=== PATIENT | female | born 1980 | race Caucasian/White ===

== ENCOUNTER 2017-11-10 01:22 | Inpatient (IN) | payer MEDICAID ==
--- NOTE | 2017-11-10 05:14 | Ultrasound Report ---
FINAL REPORT PROCEDURE: US OB BPP WO NON-STRESS TECHNIQUE: Sonographic evaluation for breathing, movement, tone, and amniotic fluid volume was performed. CPT 13571 HISTORY: wellbeing COMPARISON: No prior studies are available for comparison. FINDINGS: Amniotic fluid volume: Score of 0. The 4 quadrant amniotic fluid volume index 6.6 centimeters breathing: Normal-score 2. movement: Normal-score 2. tone: Normal. Score: 6 of 8 There is a single fetus in a vertex presentation. heart rate 141 beats per minute. IMPRESSION: Biophysical profile score 6 of 8
--- NOTE | 2017-11-10 05:16 | Ultrasound Report ---
FINAL REPORT PROCEDURE: US OB LIMITED TECHNIQUE: Real-time limited sonographic examination was performed for evaluation of amniotic fluid volume for each fetus with image documentation (1 or more fetuses). CPT 30889 HISTORY: wellbeing COMPARISON: No prior studies are available for comparison. FINDINGS: There is a single fetus in a vertex presentation. heart rate 141 beats per minute. A 4 quadrant amniotic fluid volume measures 6.6 centimeters. This is slightly low. The placenta is not fully imaged on this study. No further measurements are obtained. IMPRESSION: Slightly diminished amniotic fluid volume with a 4 quadrant measurement of 6.6 centimeters. Single fetus vertex presentation.
[2017-11-10] MEDS ORDERED: XYLOCAINE 2% INFILTRATI ONE ×2 (05:58→20:27)
[2017-11-10] MEDS ORDERED: BRETHINE IVP PRN (05:58)
[2017-11-10] MEDS ORDERED: MINERAL OIL PO PRN (05:58)
[2017-11-10] MEDS ORDERED: BRETHINE SUB-Q PRN (05:58)
[2017-11-10] MEDS ORDERED: PITOCin/NS 20 UNIT/1000ML DRIP 20 UNITS/1,000 ML BAG IV SCH (06:00)
[2017-11-10 06:41] LABS: Hematocrit 33.4 % (30.3-42.9); Mean Corpuscular HGB Conc 33 % (30-34); Mean Corpuscular Hemoglobin 28 pg (28-32); Mean Corpuscular Volume 84 fl (79-97); Platelet Count 239 K/mm3 (140-440); Red Blood Count 3.97 M/mm3 (3.65-5.03); Red Cell Distribution Width 14.8 % (13.2-15.2)
--- NOTE | 2017-11-10 06:51 | History and Physical Report ---
<ISRAEL BEAR - Last Filed: 11/10/17 06:47> History of Present Illness Date of examination: 11/10/17 History of present illness: 37 yo @ 41 weeks, presented with c/o LOF for 3 days. Nonreactive NST, BPP 6/10, RUPAL: 6.6cm. Scheduled for induction Sunday 11/12. 1cm on RN exam, nitz negative. records unavailable, will request. Past History - Obstetrical History : 4 Medications and Allergies Allergies Allergy/AdvReac Type Severity Reaction Status Date / Time No Known Allergies Allergy Verified 01/28/16 22:33 Home Medications Medication Instructions Recorded Confirmed Last Taken Type Ferrous Sulfate [Feosol 325 MG tab] 325 mg PO BID #60 tablet 11/11/17 Unknown Rx Ibuprofen [Motrin] 800 mg PO Q8HR PRN #30 tablet 11/11/17 Unknown Rx oxyCODONE /ACETAMINOPHEN [Percocet 1 tab PO Q6HR PRN #40 tablet 11/11/17 Unknown Rx 5/325] Active Meds: Active Medications Ephedrine Sulfate (Ephedrine Sulfate) 10 mg IV Q2M PRN PRN Reason: Hypotension Lactated Ringer's (Lactated Ringers) 1,000 mls @ 125 mls/hr IV DIRECT SAIDA Oxytocin/Sodium Chloride (Pitocin/Ns 20 Unit/1000ml Drip) 20 units in 1,000 mls @ 125 mls/hr IV DIRECT SAIDA Mineral Oil (Mineral Oil) 30 ml PO QHS PRN PRN Reason: Constipation Terbutaline Sulfate (Brethine) 0.25 mg SUB-Q ONCE PRN PRN Reason: Hyperstimulation/Hypertonicity Terbutaline Sulfate (Brethine) 0.25 mg IVP ONCE PRN PRN Reason: Hyperstimulation/Hypertonicity - Vital Signs Vital signs: Vital Signs Pulse Pulse Ox 76 98 11/10/17 03:29 11/10/17 03:29 Temp Pulse Resp BP Pulse Ox 80 98 11/10/17 04:54 11/10/17 04:54 Results Result Diagrams: 11/10/17 06:20 Abnormal lab results 11/10/17 Range/Units 06:20 WBC 11.1 H (4.5-11.0) K/mm3 All other labs normal. <MARYCRUZ TUCKER - Last Filed: 11/11/17 01:29> History of Present Illness Date of admission: 11/10/17 01:23 Medications and Allergies Active Meds: Active Medications Butorphanol Tartrate (Stadol) 2 mg IV Q2H PRN PRN Reason: Pain , Severe (7-10) Ephedrine Sulfate (Ephedrine Sulfate) 10 mg IV Q2M PRN PRN Reason: Hypotension Last Admin: 11/10/17 22:54 Dose: 10 mg Oxytocin/Sodium Chloride (Pitocin/Ns 20 Unit/1000ml Drip) 20 units in 1,000 mls @ 125 mls/hr IV DIRECT SAIDA Ampicillin Sodium (Ampicillin/Ns 1 Gm/50 Ml) 1 gm in 50 mls @ 100 mls/hr IV Q4H SAIDA; Protocol Lactated Ringer's (Lactated Ringers) 1,000 mls @ 125 mls/hr IV DIRECT SAIDA Last Admin: 11/10/17 22:58 Dose: 125 mls/hr Oxytocin/Sodium Chloride (Pitocin/Ns 30 Unit/500ml) 30 units in 500 mls @ 1 mls /hr IV TITR SAIDA; Protocol Oxytocin/Sodium Chloride (Pitocin/Ns 30 Unit/500ml) 30 units in 500 mls @ 4 mls /hr IV TITR SAIDA; Protocol Fentanyl/Bupivacaine/Sodium Chlor (Fentanyl-Bupiv 2 Mcg/Ml-0.125%) 200 mcg in 100 mls @ 12 mls/hr EPIDURAL TITR SAIDA; Protocol Last Admin: 11/10/17 22:39 Dose: 12 mls/hr Oxytocin/Sodium Chloride (Pitocin/Ns 20 Unit/1000ml Drip) 20 units in 1,000 mls @ 0 mls/hr IV TITR SAIDA Lactated Ringer's (Lactated Ringers) 1,000 mls @ 2,250 mls/hr IV PREOP SAIDA Stop: 11/12/17 01:27 Mineral Oil (Mineral Oil) 30 ml PO QHS PRN PRN Reason: Constipation Misoprostol (Cytotec) 25 mcg VG Q4H SAIDA Last Admin: 11/10/17 17:19 Dose: 25 mcg Naloxone HCl (Narcan 2 Mg/2 Ml) 0.2 mg IV Q5M PRN PRN Reason: Respiratory sedation Ondansetron HCl (Zofran) 4 mg IV Q8H PRN PRN Reason: Nausea And Vomiting Terbutaline Sulfate (Brethine) 0.25 mg SUB-Q ONCE PRN PRN Reason: Hyperstimulation/Hypertonicity Terbutaline Sulfate (Brethine) 0.25 mg IVP ONCE PRN PRN Reason: Hyperstimulation/Hypertonicity - Vital Signs Vital signs: Vital Signs Pulse Pulse Ox 76 98 11/10/17 03:29 11/10/17 03:29 Temp Pulse Resp BP Pulse Ox 98.8 F 90 20 113/60 98 11/10/17 21:00 11/11/17 01:27 11/10/17 22:00 11/11/17 01:21 11/11/17 01:27 Results Result Diagrams: 11/10/17 06:20 Abnormal lab results 11/10/17 Range/Units 06:20 WBC 11.1 H (4.5-11.0) K/mm3 All other labs normal.
[2017-11-10 09:13] LABS: Rubella IgG Antibody Immune (Immune)
[2017-11-10] MEDS: CYTOTEC VG SCH ×3 (09:17→17:19)
[2017-11-10] MEDS: LACTATED RINGERS 1,000 ML IV SCH ×5 (09:18→22:58)
[2017-11-10 09:48] LABS: Hepatitis C Virus Antibody Non-Reactive (NonReactive)
[2017-11-10] MEDS ORDERED: TYLENOL PO ONE (19:24)
[2017-11-10] MEDS ORDERED: SUBLIMAZE IV ONE (20:25)
[2017-11-10] MEDS ORDERED: STADOL IV PRN (20:27)
[2017-11-10] MEDS ORDERED: ZOFRAN IV PRN (20:27)
[2017-11-10] MEDS ORDERED: CERVIDIL VG ONE (20:27)
[2017-11-10] MEDS ORDERED: NARCAN 0.4 MG/1 ML IV PRN (20:27)
[2017-11-10] MEDS ORDERED: POLYCILLIN/NS 2 GM/100 ML 2 GM/100 ML BAG IV SCH (21:00)
[2017-11-10] MEDS ORDERED: PITOCin/NS 30 UNIT/500ML 30 UNITS/500 ML BAG IV SCH ×2 (21:00)
[2017-11-10] MEDS ORDERED: NARCAN 2 MG/2 ML IV PRN (21:37)
--- NOTE | 2017-11-10 21:38 | Anesthesia Consultation ---
Anesthesia Consult and Med Hx Date of service: 11/10/17 - Airway Anesthetic Teeth Evaluation: Good ROM Head & Neck: Adequate Mental/Hyoid Distance: Adequate Mallampati Class: Class II Intubation Access Assessment: Probably Good - Pulmonary Exam CTA: Yes - Cardiac Exam Cardiac Exam: RRR - Pre-Operative Health Status ASA Pre-Surgery Classification: ASA2 Proposed Anesthetic Plan: Epidural - Pulmonary Hx Asthma: No COPD: No Hx Pneumonia: No - Cardiovascular System Hx Hypertension: No - Central Nervous System Hx Seizures: No Hx Psychiatric Problems: No - Endocrine Hx Renal Disease: No Hx End Stage Renal Disease: No Hx Hypothyroidism: No Hx Hyperthyroidism: No - Hematic Hx Anemia: No Hx Sickle Cell Disease: No - Other Systems Hx Alcohol Use: No
[2017-11-10] MEDS ORDERED: fentaNYL-BUPIV 2 MCG/ML-0.125% 200 MCG/100 ML BAG EPIDURAL SCH (22:00)
[2017-11-11] MEDS ORDERED: PEPCID IV ONE (00:41)
[2017-11-11] MEDS ORDERED: REGLAN IV ONE (00:41)
[2017-11-11] MEDS ORDERED: BICITRA PO ONE (00:41)
[2017-11-11] MEDS ORDERED: AMPICILLIN/NS 1 GM/50 ML 1 GM/50 ML BAG IV SCH (01:00)
[2017-11-11] MEDS ORDERED: LACTATED RINGERS 1,000 ML IV SCH (01:00)
[2017-11-11] MEDS ORDERED: PITOCin/NS 20 UNIT/1000ML DRIP 20 UNITS/1,000 ML BAG IV SCH ×2 (01:00→06:51)
[2017-11-11] MEDS ORDERED: ANCEF/STERILE WATER 2 GM/20 ML 2 GM/20 ML SYRINGE IV NR (01:00)
--- NOTE | 2017-11-11 01:41 | Anesthesia Day of Surgery ---
Anesthesia Day of Surgery - Day of Surgery Patient Examined: Yes Patient H&P Reviewed: Yes Patient is NPO: Yes
[2017-11-11] MEDS ORDERED: XYLOCAINE MPF 2% ONE ×2 (01:59→02:34)
[2017-11-11] MEDS ORDERED: WATER FOR IRRIG STERILE IR ONE (02:05)
[2017-11-11] MEDS ORDERED: NACL 0.9% IR ONE (02:05)
[2017-11-11] MEDS ORDERED: MORPHINE ONE ×2 (02:33)
[2017-11-11] MEDS ORDERED: VERSED ONE (02:37)
[2017-11-11] MEDS ORDERED: TORADOL ONE (03:13)
[2017-11-11] MEDS ORDERED: DILAUDID ONE (03:19)
--- NOTE | 2017-11-11 03:29 | Procedure Note ---
OB Delivery Note - Delivery Date of Delivery: 11/11/17 Surgeon: MARYCRUZ TUCKER Estimated blood loss: other (1100 mL) - Section Preop diagnosis: nonreassuring FHR tracing Postop diagnosis: same section procedure: section, primary low transverse Disposition: PACU Complications: intra-op hemorrhage Narrative: Please see operative report. - A at 1 minute: 8 at 5 minutes: 9 Infant Gender: Female (3336g (7lb 6 oz) @ 0223 am)
--- NOTE | 2017-11-11 03:30 | Post Anesthesia Evaluation ---
- Post Anesthesia Evaluation Patient Participated: Yes Airway Patent: Yes Stable Respiratory Function: Yes Nausea/Vomiting: No Temp > 96.8F: Yes Pain Manageable: Yes Adequeate Hydration: Yes Anesthesia Complications: No Block Receding Appropriately: Yes Patient on Ventilator: No
--- NOTE | 2017-11-11 03:34 | Operative Report ---
Operative Report Operative Report: Date of procedure: November 11, 2017 Preoperative diagnosis: 1) IUP at 41w1d 2) Nonreassuring status- repetitive late decelerations remote from delivery 3) AMA 4) Morbid Obesity BMI 41 Postoperative diagnosis: Same Procedure: Primary Low Transverse presentation Surgeon: Katie Shay M.D. Anesthesia: Epidural Findings: 1) Viable female , Apgars[ 8 and 9, weight 3336g, (7lb 6oz) in cephalic presentation 2) Normal-appearing uterus ovaries and tubes; prominent vessels in lower uterine segment Estimated blood loss: 1100 mL IV fluids: 1500 mL Urine output: 100 mL, clear at the end of the procedure Drains: [place] to gravity Specimens: Placenta to pathology Complications: Intraoperative Hemorrhage. Counts correct x 3 Disposition: Stable to PACU Indication for procedure: Operation in detail: After the risks, benefits, alternatives and complications were explained to the patient she gave informed consent for the procedure. She was subsequently taken to the operating room where epidural anesthesia was noted to be adequate. She was subsequently placed in the dorsal supine position with leftward tilt and prepped and draped in a normal sterile fashion. heart tones were noted prior to incision. A timeout was performed. A Pfannenstiel skin incision was made with the knife and carried down to the layer of the fascia with the Bovie. The fascia was incised in the midline and the fascial incision was extended bilaterally with the Bovie. Attention was then turned to the superior aspect of the incision which was grasped with two Kochers, tented up, and dissected off the rectus muscles. Attention was then turned to the inferior aspect of the incision which was grasped with two Kochers , tented up and dissected off the rectus muscles. The rectus muscles were then in the midline and partially transected for adequate visualization. The peritoneum was then entered bluntly. The peritoneal incision was extended with good visualization of the bladder. The peritoneal incision was then stretched. An Jaime self-retaining retractor was placed for visualization. The bladder blade was placed. The vesicouterine peritoneum was grasped with smooth pickups and incised with Metzenbaum scissors. Metzenbaum scissors were used to extend the incision bilaterally. The bladder flap was then created digitally and the bladder blade was replaced. A transverse incision was made in the lower uterine segment with a knife and extended bilaterally with the bandage scissors. Prominent vessels were noted in the lower uterine segment. The head was delivered without difficulty followed by shoulders and body. was bulb suctioned at delivery. The cord was clamped and cut and the was handed to NICU staff in attendance. Cord blood was collected. The placenta was then delivered manually. The uterus was then cleared of all clots and debris. The hysterotomy was then reapproximated with 0 Vicryl in a running locked fashion. A second layer of the same suture was used in imbricating fashion. The hysterotomy was inspected and hemostasis was noted. The Jaime self-retaining retractor was removed. The gutters were irrigated and cleared of all clots and debris. The hysterotomy was again inspected and noted to be hemostatic. Surgicel was placed over the hysterotomy. The peritoneum was reapproximated with 2-0 Vicryl in a running fashion incorporating the rectus muscles. Surgicel was placed over the cut edge of the rectus muscles. The fascia was reapproximated with 0 Vicryl in a running fashion. The subcutaneous tissue was reapproximated with 2-0 Vicryl in a running fashion. The skin was reapproximated with 4-0 Vicryl in a subcuticular fashion. The incision was then covered with steri strips and a pressure dressing. The procedure was then ended. The patient tolerated the procedure well and was taken to the PACU in stable condition. All instrument, lap, and needle counts were correct 3.
[2017-11-11] MEDS: DILAUDID IV PRN ×3 (03:54→04:36)
[2017-11-11] MEDS ORDERED: SODIUM CHLORIDE FLUSH SYRINGE 10 ML IV PRN (04:00)
[2017-11-11] MEDS ORDERED: SODIUM CHLORIDE FLUSH SYRINGE 10 ML IV NR (06:51)
[2017-11-11] MEDS ORDERED: TUCKS PAD TP PRN (06:51)
[2017-11-11] MEDS ORDERED: NARCAN 0.4 MG/1 ML IV PRN (07:00)
[2017-11-11] MEDS ORDERED: D5LR 1,000 ML IV SCH (07:30)
[2017-11-11] MEDS ORDERED: LANSINOH TP PRN (08:00)
[2017-11-11] MEDS: PERCOCET 5/325 PO PRN ×3 (08:23→22:32)
[2017-11-11] MEDS: ANCEF/NS 1 GM/50 ML 1 GM/50 ML BAG IV SCH ×2 (08:49→17:03)
[2017-11-11] MEDS: FEOSOL PO SCH (11:07)
[2017-11-11] MEDS: TORADOL IV PRN (11:24)
[2017-11-11] MEDS: BENADRYL IV PRN ×2 (12:00→18:14)
[2017-11-11] MEDS: MOTRIN PO PRN (17:12)
[2017-11-11] MEDS: MYLICON PO PRN (22:32)
[2017-11-12] MEDS: DILAUDID IV PRN ×4 (00:30→23:51)
[2017-11-12 00:35] LABS: Hematocrit 26.1 % (30.3-42.9)
[2017-11-12] MEDS: MYLICON PO PRN ×2 (04:19→09:11)
[2017-11-12] MEDS ORDERED: BOOSTRIX IM ONE (06:00)
[2017-11-12] MEDS: PERCOCET 5/325 PO PRN ×2 (09:09→13:26)
[2017-11-12] MEDS: MOTRIN PO PRN ×2 (09:10→21:06)
[2017-11-12] MEDS ORDERED: M-M-R II VACCINE SUB-Q ONE (12:00)
--- NOTE | 2017-11-12 12:56 | Event Note ---
Date: 11/12/17 Pt not in her room when provider attempted to evaluate her. Will reattempt at a later time.
[2017-11-12] MEDS: MILK OF MAGNESIA PO SCH ×2 (13:28→21:05)
--- NOTE | 2017-11-12 13:50 | Progress Note ---
Assessment and Plan A: POD#1 s/p primary section at term, Poor pain control P: Change pain medication from Percocet 5's to [place] 7.5mg and monitor clinical response. Subjective - Subjective Date of service: 11/12/17 Principal diagnosis: s/p primary section at term Interval history: Pt reports burning sensation at incision site. No flatus yet. Ambulated to the NICU. Pt feels she did "too much" yesterday. Patient reports: appetite normal, voiding normally, pain poorly controlled, ambulating normally, no flatus, no bowel movement : in NICU Objective - Vital Signs Latest vital signs: Vital Signs Temp Pulse Resp BP BP Pulse Ox 11/12/17 08:30 98.5 F 91 H 20 112/69 97 11/12/17 01:25 97.9 F 94 H 18 120/69 11/11/17 22:12 98.5 F 87 18 109/65 11/11/17 17:12 18 11/11/17 17:11 18 11/11/17 16:57 98.6 F 98 H 18 136/75 Intake and Output 11/11/17 11/12/17 11/12/17 22:59 06:59 14:59 Intake Total 360 600 240 Output Total 700 Balance 360 -100 240 Intake: Oral 360 240 Intake, Free Water 600 Output: Urine 700 Void 700 Other: Total, Intake Amount 360 120 Total, Output Amount 300 # Voids Indwelling Catheter 2 Void 1 1 - Exam Breasts: Present: deferred Cardiovascular: Present: Regular rate Lungs: Present: Clear to auscultation Abdomen: Present: soft, normal bowel sounds Uterus: Present: fundal height at umbilicus Extremities: Present: edema (trace ) Incision: Present: intact - Labs Labs: Abnormal lab results 11/12/17 Range/Units 00:09 Hgb 9.0 L (10.1-14.3) gm/dl Hct 26.1 L D (30.3-42.9) %
[2017-11-12] MEDS: NORCO 7.5/325 PO PRN (18:31)
[2017-11-12] MEDS: TORADOL IV PRN (21:06)
[2017-11-12] MEDS: BENADRYL IV PRN (23:51)
[2017-11-13] MEDS: MILK OF MAGNESIA PO SCH ×3 (02:00→12:15)
[2017-11-13] MEDS: MOTRIN PO PRN ×3 (06:07→19:05)
[2017-11-13] MEDS: TORADOL IV PRN (06:07)
--- NOTE | 2017-11-13 08:44 | Progress Note ---
Assessment and Plan A: POD#2 s/p primary section at term, Poor pain control P: Pain controlled ambulating well acute anemia on iron continue postop orders Subjective - Subjective Date of service: 11/13/17 Principal diagnosis: s/p primary section at term Patient reports: appetite normal, voiding normally, pain well controlled, flatus , ambulating normally [place]: doing well Objective - Vital Signs Latest vital signs: Vital Signs Temp Pulse Resp BP Pulse Ox 11/12/17 23:27 98.4 F 81 18 111/57 95 11/12/17 15:49 97.9 F 92 H 20 128/74 97 Intake and Output 11/12/17 11/13/17 11/13/17 23:59 07:59 15:59 Intake Total 360 240 Balance 360 240 Intake: Oral 360 Intake, Free Water 240 Other: Total, Intake Amount 360 # Voids Void 1 1 - Exam Breasts: Present: normal Cardiovascular: Present: Regular rate, Normal S1 Lungs: Present: Clear to auscultation, Normal air movement Abdomen: Present: normal appearance, soft, normal bowel sounds. Absent: distention, tenderness, guarding Vulva: both: normal Uterus: Present: normal, firm, fundal height below umbilicus. Absent: bogginess , tenderness Extremities: Present: normal Deep Tendon Reflex Grade: Normal +2 Incision: Present: normal, dry, intact
[2017-11-13] MEDS: NORCO 7.5/325 PO PRN ×4 (09:35→23:28)
[2017-11-13] MEDS: FEOSOL PO SCH (09:51)
[2017-11-13] MEDS: BENADRYL IV PRN (10:46)
[2017-11-13] MEDS ORDERED: BENADRYL PO PRN (21:18)
[2017-11-14] MEDS: MOTRIN PO PRN (05:40)
[2017-11-14] MEDS: NORCO 7.5/325 PO PRN ×2 (05:40→09:57)
[2017-11-14] MEDS: MILK OF MAGNESIA PO SCH (06:18)
--- NOTE | 2017-11-14 08:06 | Progress Note ---
Assessment and Plan - Patient Problems (1) Status post delivery Current Visit: Yes Status: Acute Plan to address problem: Patient doing well Discharge home Subjective - Subjective Date of service: 11/14/17 Principal diagnosis: s/p primary section at term Interval history: Patient is tolerating a regular diet and her pain is well controlled. She is without any significant complaints this morning. Patient reports: appetite normal, voiding normally, pain well controlled [place]: doing well Objective - Vital Signs Latest vital signs: Vital Signs Temp Pulse Resp BP 11/13/17 23:30 98.6 F 74 18 117/68 11/13/17 19:05 20 11/13/17 18:19 99 F 89 20 125/84 11/13/17 14:26 20 11/13/17 13:59 98.9 F 87 18 115/69 11/13/17 09:35 20 Intake and Output 11/13/17 11/14/17 11/14/17 22:59 06:59 14:59 Intake Total 500 Balance 500 Intake: Oral 200 Intake, Free Water 300 Other: Total, Intake Amount 200 # Bowel Movements 1 - Exam Abdomen: Present: normal appearance, soft Uterus: Present: normal Incision: Present: normal
--- NOTE | 2017-11-14 08:08 | Discharge Summary ---
Providers - Providers Date of Admission: 11/10/17 01:23 Date of discharge: 11/14/17 Attending physician: XAVIER FRAUSTO MD 11/11/17 06:51 Consult to Pulper [CONS] Routine Reason For Exam: Primary care physician: XAVIER FRAUSTO MD Hospitalization Reason for admission: induction of labor Delivery: Procedure: section, primary low transverse Incision: normal Discharge diagnosis: IUP at term delivered [place] baby: female Hospital course: Patient admitted for induction of labor that was complicated by repetitive late decelerations. The patient underwent a delivery. Postoperative course was uneventful. Condition at discharge: Good Disposition: DC-01 TO HOME OR SELFCARE - Discharge Diagnoses (1) Status post delivery Status: Acute Plan - Discharge Medications Prescriptions: Ferrous Sulfate [Feosol 325 MG tab] 325 mg PO BID #60 tablet Ibuprofen [Motrin] 800 mg PO Q8HR PRN #30 tablet PRN Reason: Pain , Severe (7-10) oxyCODONE /ACETAMINOPHEN [Percocet 5/325] 1 tab PO Q6HR PRN #40 tablet PRN Reason: Pain - Provider Discharge Summary Activity: no sex for 6 weeks, no heavy lifting 4 weeks, no strenuous exercise Diet: routine Instructions: routine Additional instructions: [] Smoking cessation referral if applicable(refer to patient education folder for contact #) [] Refer to [facility] Booklet Call your doctor immediately for: * Fever > 100.5 * Heavy vaginal bleeding ( >1 pad per hour) * Severe persistent headache * Shortness of breath * Reddened, hot, painful area to leg or breast * Drainage or odor from incision. * Keep incision clean and dry at all times and follow doctor's instructions regarding bathing/showering Schedule an incision check in 2 weeks - Follow up plan
[2017-11-14 08:36] VITALS: BP 114/76
[2017-11-14] MEDS: FEOSOL PO SCH (09:57)
== END 2017-11-14 12:30 | disposition home or self-care (01) | DRG 765 ==
LOC: TRG 01:22 → LD 01:23 → TRG 02:27 → OB 11-11 06:52
PROVIDERS: ADMIT Obstetrics & Gynecology; ATTEND Obstetrics & Gynecology
PROC: 10D00Z1 Extraction of Products of Conception, Low, Open Approach (ICD-10-PCS; principal; 2017-11-11)
PROC: 3E0234Z Introduction of Serum, Toxoid and Vaccine into Muscle, Percutaneous Approach (ICD-10-PCS; 2017-11-12)
DX: O76 Abnormality in fetal heart rate and rhythm complicating labor and delivery (principal); Z68.41 Body mass index [BMI] 40.0-44.9, adult; Z3A.41 41 weeks gestation of pregnancy; Z37.0 Single live birth; E66.01 Morbid (severe) obesity due to excess calories; Z71.3 Dietary counseling and surveillance; Z23 Encounter for immunization; O67.8 Other intrapartum hemorrhage
CPT/HCPCS: 36415; 76815; 76819; 85014; 85018; 85027; 85660; 86592; 86706; 86762; 86803; 86850; 86900; 86901; 87806; 88307; 90471; 90715; 99211; G0463; J0290; J0690; J1170; J1200; J1885; J2250; J2270; J2590; J2765; J3010; J7120; J7121